=== PATIENT | male | born 1975 | race Caucasian/White ===

== ENCOUNTER 2016-11-18 23:40 | Emergency (ER) | payer SELFPAY ==
[~2016-11-18] VITALS: Ht 172.7 cm; Wt 80.0 kg
[~2016-11-18 23:40] MED LIST: NO MEDS
[2016-11-19] MEDS ORDERED: PERTUSS(ACELL),DIPH,TET VAC/PF 0.5 ML VIAL IM ONE (04:45)
[2016-11-19] MEDS ORDERED: BACITRACIN 0.9 GM PACKET OINTMENT TP ONE (04:45)
[2016-11-19 05:45] VITALS: BP 141/73
== END 2016-11-19 06:13 | disposition home or self-care (01) ==
LOC: EMS 23:41
DX: S33.5XXA Sprain of ligaments of lumbar spine, initial encounter (principal); S93.402A Sprain of unspecified ligament of left ankle, initial encounter; S80.01XA Contusion of right knee, initial encounter; S80.812A Abrasion, left lower leg, initial encounter; F12.90 Cannabis use, unspecified, uncomplicated; V19.9XXA Pedal cyclist (driver) (passenger) injured in unspecified traffic accident, initial encounter; Y93.89 Activity, other specified; Y92.89 Other specified places as the place of occurrence of the external cause; Y99.8 Other external cause status
CPT/HCPCS: 29530; 29540; 72100; 90715; 99284

== ENCOUNTER 2017-08-11 19:51 | Emergency (ER) | payer MEDICAID ==
[~2017-08-11] VITALS: Ht 172.7 cm; Wt 78.0 kg
[2017-08-11] MEDS ORDERED: PROPARACAINE/FLUORESCEIN SOD 0.5-0.25% 0.5 ML OPHTHALMIC SOLUTION OS ONE (20:45)
[2017-08-11 22:30] VITALS: BP 118/68
== END 2017-08-11 22:47 | disposition home or self-care (01) ==
LOC: EMS 20:00
DX: S01.112A Laceration without foreign body of left eyelid and periocular area, initial encounter (principal); R03.0 Elevated blood-pressure reading, without diagnosis of hypertension; F41.9 Anxiety disorder, unspecified; W22.8XXA Striking against or struck by other objects, initial encounter; Y93.89 Activity, other specified; Y92.89 Other specified places as the place of occurrence of the external cause; Y99.8 Other external cause status
CPT/HCPCS: 99282; Z7610

== ENCOUNTER 2017-08-30 09:38 | Emergency (ER) | payer MEDICAID ==
[~2017-08-30] VITALS: Ht 172.7 cm; Wt 77.3 kg
[2017-08-30] MEDS ORDERED: LIDOCAINE HCL/PF 1% 2 ML VIAL IM ONE (11:00)
[2017-08-30] MEDS ORDERED: POVIDONE-IODINE 10% 15 ML SOLUTION UD TP ONE (11:00)
[2017-08-30] MEDS ORDERED: CefTRIAXone SODIUM 1 GM/VIAL IM ONE (11:00)
[2017-08-30] MEDS ORDERED: BACITRACIN 0.9 GM PACKET OINTMENT TP ONE (11:00)
[2017-08-30] MEDS ORDERED: ACETAMINOPHEN 500 MG TABLET PO ONE (11:45)
[2017-08-30 14:21] VITALS: BP 126/75
== END 2017-08-30 15:14 | disposition home or self-care (01) ==
LOC: EMS 09:39
DX: S89.92XA Unspecified injury of left lower leg, initial encounter (principal); L02.412 Cutaneous abscess of left axilla; L03.112 Cellulitis of left axilla; F12.90 Cannabis use, unspecified, uncomplicated; X58.XXXA Exposure to other specified factors, initial encounter; Y93.89 Activity, other specified; Y92.89 Other specified places as the place of occurrence of the external cause; Y99.8 Other external cause status
CPT/HCPCS: 93971; 96372; 99284; J0696; J3490

== ENCOUNTER 2017-12-29 01:39 | Emergency (ER) | payer MEDICAID ==
[~2017-12-29] VITALS: Ht 172.7 cm; Wt 77.3 kg
[2017-12-29] MEDS ORDERED: HYDROCORTISONE 2.5% 30 GM CREAM TP ONE (03:45)
[2017-12-29 04:05] VITALS: BP 120/82
== END 2017-12-29 04:07 | disposition home or self-care (01) ==
LOC: EMS 01:41
DX: K64.4 Residual hemorrhoidal skin tags (principal); F41.9 Anxiety disorder, unspecified; F12.90 Cannabis use, unspecified, uncomplicated
CPT/HCPCS: 99283

== ENCOUNTER 2018-04-10 21:29 | Emergency (ER) | payer MEDICAID ==
[~2018-04-10] VITALS: Ht 172.7 cm; Wt 165.0 kg
[2018-04-10 23:18] VITALS: BP 132/81
== END 2018-04-10 23:32 | disposition home or self-care (01) ==
LOC: EMS 21:29
DX: L25.9 Unspecified contact dermatitis, unspecified cause (principal); F41.9 Anxiety disorder, unspecified; F12.90 Cannabis use, unspecified, uncomplicated

== ENCOUNTER 2018-06-26 16:03 | Emergency (ER) | payer MEDICAID ==
[~2018-06-26] VITALS: Ht 172.7 cm; Wt 77.3 kg
[2018-06-26 20:00] VITALS: BP 119/84
== END 2018-06-26 20:05 | disposition home or self-care (01) ==
LOC: EMS 16:04
DX: K40.20 Bilateral inguinal hernia, without obstruction or gangrene, not specified as recurrent (principal); N50.3 Cyst of epididymis; N43.3 Hydrocele, unspecified; F12.90 Cannabis use, unspecified, uncomplicated
CPT/HCPCS: 74022; 76870

== ENCOUNTER 2018-10-25 13:52 | Emergency (ER) | payer MEDICAID ==
[~2018-10-25] VITALS: Ht 172.7 cm; Wt 79.5 kg
[2018-10-25 14:02] VITALS: BP 132/82
== END 2018-10-25 16:57 | disposition home or self-care (01) ==
LOC: EMS 13:55
DX: K40.90 Unilateral inguinal hernia, without obstruction or gangrene, not specified as recurrent (principal); F41.9 Anxiety disorder, unspecified; F12.90 Cannabis use, unspecified, uncomplicated

== ENCOUNTER 2021-06-29 14:22 | Emergency (ER) | payer MEDICAID, OTHER ==
[~2021-06-29] VITALS: Ht 172.7 cm; Wt 69.6 kg
[2021-06-29 15:11] LABS: APPEARANCE,URINE CLEAR (CLEAR); BILIRUBIN,URINE NEGATIVE (NEGATIVE); GLUCOSE, URINE (UA) NEGATIVE (NEGATIVE); KETONES,URINE NEGATIVE (NEGATIVE); LEUKOCYTE ESTERASE ,URINE TRACE (NEGATIVE); NITRATE,URINE NEGATIVE (NEGATIVE); OCCULT BLOOD,URINE NEGATIVE (NEGATIVE); PH,URINE 5.5 (5.0-8.0); PROTEIN,URINE TRACE mg/dL (NEGATIVE); SPECIFIC GRAVITIY, URINE 1.033 (1.003-1.030); UROBILINOGEN,URINE <=1.0 mg/dL (<=1.0)
[2021-06-29 15:22] LABS: BACTERIA,URINE Rare /HPF (None Seen); RBC,URINE 0-2 /HPF (0-2); SQUAMOUS EPITHELIAL CELL,UR Rare /LPF (None Seen)
[2021-06-29 15:36] VITALS: BP 133/79
== END 2021-06-29 16:35 | disposition home or self-care (01) ==
LOC: EMS 14:25
DX: R82.998 Other abnormal findings in urine (principal); F12.90 Cannabis use, unspecified, uncomplicated
CPT/HCPCS: 81001; 99283

== ENCOUNTER 2023-04-21 15:59 | Emergency (ER) | payer OTHER ==
[~2023-04-21] VITALS: Ht 175.3 cm; Wt 70.5 kg
[2023-04-21 16:11] VITALS: TEMP 98.4
[2023-04-21] MEDS ORDERED: PERTUSS(ACELL),DIPH,TET VAC/PF 0.5 ML SYRINGE IM. ONE (16:30)
[2023-04-21] MEDS ORDERED: LIDOCAINE 1% 10 ML VIAL SQ ONE (16:30)
[2023-04-21] MEDS ORDERED: BACITRACIN 28 GM OINTMENT TP ONE (17:45)
[2023-04-21] MEDS ORDERED: CEPH-558 PO (17:56)
[2023-04-21 18:24] VITALS: BP 131/76; PULSE 93; RESP 16
== END 2023-04-21 18:35 | disposition home or self-care (01) ==
LOC: EMS 16:00
DX: S01.511A Laceration without foreign body of lip, initial encounter (principal); F12.90 Cannabis use, unspecified, uncomplicated; F15.90 Other stimulant use, unspecified, uncomplicated; W19.XXXA Unspecified fall, initial encounter; Y93.89 Activity, other specified; Y92.89 Other specified places as the place of occurrence of the external cause; Y99.8 Other external cause status
CPT/HCPCS: 99283; 90715; 90471; 12013; J3490

== ENCOUNTER 2023-05-15 02:17 | Emergency (ER) | payer OTHER ==
[~2023-05-15] VITALS: Ht 172.7 cm; Wt 72.7 kg
[~2023-05-15 02:17] MED LIST changes: +CEPH-558 PO; -NO MEDS
[2023-05-15 02:49] VITALS: BP 133/74; PULSE 69; RESP 15; TEMP 97.3
[2023-05-15 03:14] LABS: PH,URINE DRUG SCREEN 5.5 (5.0-8.0)
[2023-05-15 03:18] LABS: ALCOHOL, URINE DRUG SCREEN NEGATIVE (NEGATIVE); AMPHET/METH SCREEN,URINE NEGATIVE (NEGATIVE); BARBITURATE SCREEN, URINE NEGATIVE (NEGATIVE); BENZODIAZEPINES SCREEN,URINE NEGATIVE (NEGATIVE); CANNABINOID SCREEN,URINE POSITIVE (NEGATIVE); COCAINE SCREEN,URINE NEGATIVE (NEGATIVE); METHADONE SCREEN, URINE NEGATIVE (NEGATIVE); OPIATE SCREEN,URINE NEGATIVE (NEGATIVE); PHENCYCLIDINE SCREEN,URINE NEGATIVE (NEGATIVE)
== END 2023-05-15 04:11 | disposition home or self-care (01) ==
LOC: EMS 02:19
DX: S00.80XD Unspecified superficial injury of other part of head, subsequent encounter (principal); F12.90 Cannabis use, unspecified, uncomplicated; Z48.02 Encounter for removal of sutures; X58.XXXD Exposure to other specified factors, subsequent encounter
CPT/HCPCS: 80307; 99283

== ENCOUNTER 2023-10-09 23:01 | Inpatient (IN) | payer MEDICAID, OTHER ==
[~2023-10-09] VITALS: Ht 172.7 cm; Wt 70.3 kg
[2023-10-09] MEDS: HALOPERIDOL LACTATE 5 MG/ML VIAL IM ONE (23:46)
[2023-10-09] MEDS: LORazepam 2 MG/ML VIAL IM ONE (23:47)
[2023-10-09] MEDS: DiphenhydrAMINE HCL 50 MG/ML VIAL IM ONE (23:47)
[2023-10-10 04:02] LABS: ALCOHOL, URINE DRUG SCREEN NEGATIVE (NEGATIVE); AMPHET/METH SCREEN,URINE POSITIVE (NEGATIVE); BARBITURATE SCREEN, URINE NEGATIVE (NEGATIVE); BENZODIAZEPINES SCREEN,URINE NEGATIVE (NEGATIVE); CANNABINOID SCREEN,URINE POSITIVE (NEGATIVE); COCAINE SCREEN,URINE NEGATIVE (NEGATIVE); METHADONE SCREEN, URINE NEGATIVE (NEGATIVE); OPIATE SCREEN,URINE NEGATIVE (NEGATIVE); PHENCYCLIDINE SCREEN,URINE NEGATIVE (NEGATIVE)
[2023-10-10] MEDS ORDERED: HALOPERIDOL 5 MG TABLET PO PRN (08:00)
[2023-10-10 08:45] LABS: COVID AG,FIA SOURCE NASAL SWAB
[2023-10-10 09:06] LABS: SARS-COV2 (COVID) ANTIGEN,FIA Negative (Negative)
[2023-10-10 09:11] LABS: BASOPHILS % (AUTO) 0.7 % (0.0-2.0); EOSINOPHILS % (AUTO) 1.7 % (1.0-6.0); HEMATOCRIT 40.6 % (41-53); HEMOGLOBIN 13.5 g/dL (13.5-17.5); LYMPHOCYTES # (AUTO) 1.7 K/uL (1.0-4.8); LYMPHOCYTES % (AUTO) 24.4 % (22.0-44.0); MEAN CORPUSCULAR HEMOGLOBIN 29.2 pg (26.0-34.0); MEAN CORPUSCULAR HGB CONC 33.2 G/dL (31.0-37.0); MEAN CORPUSCULAR VOLUME 88 fL (80-100); MONOCYTES # (AUTO) 0.5 K/uL (0.1-1.0); MONOCYTES % (AUTO) 7.5 % (2.0-9.0); NEUTROPHILS # (AUTO) 4.5 K/uL (1.8-7.7); NEUTROPHILS % (AUTO) 65.7 % (40.0-70.0); PLATELET COUNT (AUTO) 283 K/uL (150-450); RED BLOOD CELL COUNT(AUTO) 4.62 MIL/uL (4.50-5.90); RED CELL DISTRIBUTION WIDTH 12.6 % (11.5-14.5); WHITE BLOOD COUNT (AUTO) 6.8 K/uL (4.5-11.0)
[2023-10-10 09:13] LABS: ANION GAP 4 mmol/L (8-16); CALCIUM, TOTAL 8.9 mg/dL (8.8-10.5); CARBON DIOXIDE 30 mmol/L (22-29); CHLORIDE 101 mmol/L (98-107); CREATININE 0.84 mg/dL (0.60-1.30); GLOMERULAR FILTR. RATE CALC > 60 mL/min (>60); GLUCOSE,RANDOM 95 mg/dL (70-110); SODIUM SERUM 135 mmol/L (136-145); UREA NITROGEN, BLOOD 14 mg/dL (7-18)
[2023-10-10 09:18] LABS: ALCOHOL, BLOOD (SERUM) < 3 mg/dL (0-10)
[2023-10-10] MEDS: LORazepam 2 MG TABLET PO ONE (09:40)
[2023-10-10] MEDS: HALOPERIDOL 5 MG TABLET PO ONE (09:40)
[2023-10-10] MEDS: DiphenhydrAMINE HCL 25 MG CAPSULE PO ONE (09:40)
[2023-10-10 13:07] VITALS: BP 126/93; PULSE 76; RESP 17; TEMP 98.6; O2SAT 98
[2023-10-10 20:42] VITALS: BP 132/87; PULSE 78; RESP 16; TEMP 98.7; O2SAT 98
[2023-10-11] MEDS ORDERED: NICOTINE 14 MG/24 HOUR PATCH TD PRN (07:45)
[2023-10-11] MEDS ORDERED: MAGNESIUM HYDROXIDE SUSPENSION 30 ML UDCUP PO PRN (07:45)
[2023-10-11] MEDS ORDERED: MAG HYDROX/ALUMINUM HYD/SIMETH ES 30 ML SUSPENSION UDCUP PO PRN (07:45)
[2023-10-11] MEDS ORDERED: ONDANSETRON HCL 4 MG TABLET PO PRN (07:45)
[2023-10-11] MEDS ORDERED: ACETAMINOPHEN 325 MG TABLET PO PRN (07:45)
[2023-10-11] MEDS ORDERED: GuaiFENesin/D-METHORPHAN [SUGAR-FREE] 200-20MG/10 ML SYRUP UDCUP PO PRN (07:45)
[2023-10-11] MEDS ORDERED: PETROLATUM,WHITE 28 GM JELLY TP PRN (07:45)
[2023-10-11] MEDS ORDERED: DOCUSATE SODIUM 100 MG CAPSULE PO PRN (07:45)
[2023-10-11] MEDS ORDERED: IBUPROFEN 400 MG TABLET PO PRN (07:45)
[2023-10-11] MEDS ORDERED: ALBUTEROL SULFATE HFA 90 MCG/PUFF 8 GM INHALER IH PRN (07:45)
[2023-10-11] MEDS ORDERED: LOPERAMIDE HCL 2 MG CAPSULE PO PRN (07:45)
[2023-10-11] MEDS ORDERED: CloNIDine HCL 0.1 MG TABLET PO PRN (07:45)
[2023-10-11 08:19] VITALS: BP 104/76; PULSE 75; RESP 18; TEMP 98.2; O2SAT 99
[2023-10-11] MEDS: RisperiDONE 0.5 MG TABLET PO SCH (14:00)
[2023-10-11 20:30] VITALS: BP 120/75; PULSE 69; RESP 17; TEMP 97.8; O2SAT 100
[2023-10-12] MEDS: LORazepam 2 MG TABLET PO PRN (08:25)
[2023-10-12 08:38] VITALS: BP 120/74; PULSE 69; RESP 18; TEMP 97.8; O2SAT 99
[2023-10-12 20:19] VITALS: BP 117/77; PULSE 85; RESP 17; RESP 18; TEMP 98.4; TEMP 98.6; O2SAT 98
[2023-10-12] MEDS: ZOLPIDEM TARTRATE 10 MG TABLET PO PRN (21:01)
[2023-10-13 08:46] VITALS: BP 124/76; PULSE 98; RESP 16; TEMP 98; O2SAT 100
[2023-10-13] MEDS ORDERED: RISP0.5T80 PO (10:22)
[2023-10-13] MEDS ORDERED: RISP0.5T39 PO (11:45)
== END 2023-10-13 15:55 | disposition home or self-care (01) | DRG 751 ==
LOC: EMS 23:02 → B3A 10-10 09:05
PROVIDERS: ADMIT Psychiatry & Neurology Child & Adolescent Psychiatry; ATTEND Psychiatry & Neurology Child & Adolescent Psychiatry
PROC: GZ52ZZZ Individual Psychotherapy, Cognitive (ICD-10-PCS; principal; 2023-10-11)
DX: F33.3 Major depressive disorder, recurrent, severe with psychotic symptoms (principal); E87.1 Hypo-osmolality and hyponatremia; F15.10 Other stimulant abuse, uncomplicated; G47.00 Insomnia, unspecified; F41.9 Anxiety disorder, unspecified; F12.10 Cannabis abuse, uncomplicated; Z20.822 Contact with and (suspected) exposure to COVID-19
CPT/HCPCS: 80048; 80307; 85025; 99285; G0480; J1200; J1630; J2060

== ENCOUNTER 2023-11-11 19:37 | Emergency (ER) | payer MEDICAID, OTHER ==
[~2023-11-11] VITALS: Ht 172.7 cm; Wt 72.7 kg
[~2023-11-11 19:37] MED LIST changes: -CEPH-558 PO; +RISP0.5T39 PO; +RISP0.5T80 PO
[2023-11-11 19:54] VITALS: TEMP 98.3
[2023-11-11 20:41] VITALS: BP 138/73; PULSE 116; RESP 16
== END 2023-11-11 23:49 | disposition home or self-care (01) ==
LOC: EMS 19:37
DX: S90.32XA Contusion of left foot, initial encounter (principal); M25.511 Pain in right shoulder; M25.562 Pain in left knee; F12.90 Cannabis use, unspecified, uncomplicated; V23.49XA Other motorcycle driver injured in collision with car, pick-up truck or van in traffic accident, initial encounter; Y93.55 Activity, bike riding; Y92.488 Other paved roadways as the place of occurrence of the external cause; Y99.8 Other external cause status
CPT/HCPCS: 29105; 99284

== ENCOUNTER 2023-11-26 20:31 | Emergency (ER) | payer OTHER ==
[~2023-11-26] VITALS: Ht 172.7 cm; Wt 72.7 kg
[2023-11-26 20:40] VITALS: TEMP 97.7
[2023-11-27 00:20] VITALS: BP 135/87; PULSE 88; RESP 18
[2023-11-27] MEDS: IBUPROFEN 600 MG TABLET PO ONE (00:26)
[2023-11-27] MEDS: METHOCARBAMOL 500 MG TABLET PO ONE (00:27)
[2023-11-27] MEDS ORDERED: METH-812 PO (00:34)
== END 2023-11-27 00:53 | disposition home or self-care (01) ==
LOC: EMS 20:31
DX: M79.672 Pain in left foot (principal); F41.9 Anxiety disorder, unspecified; M62.838 Other muscle spasm; F12.90 Cannabis use, unspecified, uncomplicated
CPT/HCPCS: 99283

== ENCOUNTER 2024-05-03 05:14 | Emergency (ER) | payer OTHER ==
[~2024-05-03] VITALS: Ht 172.7 cm; Wt 69.1 kg
[~2024-05-03 05:14] MED LIST changes: +METH-812 PO; -RISP0.5T39 PO; -RISP0.5T80 PO
[2024-05-03 05:24] VITALS: BP 140/76; PULSE 87; RESP 16; TEMP 98.4; O2SAT 100
== END 2024-05-03 06:11 | disposition left against medical advice (07) ==
LOC: EMS 05:16
DX: M54.50 Low back pain, unspecified (principal); Z53.21 Procedure and treatment not carried out due to patient leaving prior to being seen by health care provider

== ENCOUNTER 2024-10-16 22:47 | Emergency (ER) | payer OTHER ==
[~2024-10-16 22:47] MED LIST changes: +ACET-3385 PO; -METH-812 PO
== END 2024-10-16 23:25 | disposition left against medical advice (07) ==
LOC: EMS 23:10
DX: R51.9 Headache, unspecified (principal); Z53.21 Procedure and treatment not carried out due to patient leaving prior to being seen by health care provider

== ENCOUNTER 2024-12-24 15:47 | Emergency (ER) | payer OTHER ==
[~2024-12-24] VITALS: Ht 170.2 cm; Wt 81.8 kg
[2024-12-24 15:55] VITALS: BP 121/76; PULSE 92; RESP 16; TEMP 98; O2SAT 98
== END 2024-12-24 16:52 | disposition home or self-care (01) ==
LOC: EMS 15:47
DX: R00.2 Palpitations (principal); F12.90 Cannabis use, unspecified, uncomplicated; F41.9 Anxiety disorder, unspecified; F15.90 Other stimulant use, unspecified, uncomplicated; Z98.890 Other specified postprocedural states
CPT/HCPCS: 93005; 99283

== ENCOUNTER 2025-03-21 06:27 | Emergency (ER) | payer OTHER ==
[~2025-03-21] VITALS: Ht 170.2 cm; Wt 81.8 kg
[2025-03-21 06:28] VITALS: TEMP 98.1
[2025-03-21 07:18] LABS: COVID AG,FIA SOURCE NASAL SWAB
[2025-03-21 08:01] LABS: SARS-COV2 (COVID) ANTIGEN,FIA Negative (Negative)
[2025-03-21 08:34] VITALS: BP 131/78; PULSE 82; RESP 18; O2SAT 99
[2025-03-21 08:38] LABS: AMPHET/METH SCREEN,URINE POSITIVE (NEGATIVE); BARBITURATE SCREEN, URINE NEGATIVE (NEGATIVE); CANNABINOID SCREEN,URINE POSITIVE (NEGATIVE); COCAINE SCREEN,URINE NEGATIVE (NEGATIVE); METHADONE SCREEN, URINE NEGATIVE (NEGATIVE)
[2025-03-21 08:39] LABS: PLATELET COUNT (AUTO) 298 K/uL (150-450); RED BLOOD CELL COUNT(AUTO) 4.92 MIL/uL (4.50-5.90); RED CELL DISTRIBUTION WIDTH 13.5 % (11.5-14.5); WHITE BLOOD COUNT (AUTO) 6.2 K/uL (4.5-11.0)
[2025-03-21 08:44] LABS: PH,URINE DRUG SCREEN 5.5 (5.0-8.0)
[2025-03-21 08:49] LABS: ALCOHOL, URINE DRUG SCREEN NEGATIVE (NEGATIVE)
[2025-03-21 08:55] LABS: CALCIUM, TOTAL 8.9 mg/dL (8.8-10.5); CREATININE 1.22 mg/dL (0.60-1.30); GLOMERULAR FILTR. RATE CALC > 60 mL/min (>60); GLUCOSE,RANDOM 78 mg/dL (70-110); SODIUM SERUM 143 mmol/L (136-145); UREA NITROGEN, BLOOD 24 mg/dL (7-18)
[2025-03-21] MEDS ORDERED: HYDR50CA7 PO (09:51)
== END 2025-03-21 10:00 | disposition home or self-care (01) ==
LOC: EMS 06:28
DX: F15.10 Other stimulant abuse, uncomplicated (principal); F41.9 Anxiety disorder, unspecified; F20.9 Schizophrenia, unspecified; F31.9 Bipolar disorder, unspecified; F12.90 Cannabis use, unspecified, uncomplicated; Z59.00 Homelessness unspecified; Z20.822 Contact with and (suspected) exposure to COVID-19
CPT/HCPCS: 99283; 87426; 80048; 85025; 36415; 80307; G0480

== ENCOUNTER 2025-04-05 12:45 | Emergency (ER) | payer OTHER ==
[~2025-04-05] VITALS: Ht 172.7 cm; Wt 73.6 kg
[~2025-04-05 12:45] MED LIST changes: -ACET-3385 PO; +ARIP10TA38 PO; +ATOM80CA3 PO; +BUPR-722 PO; +HYDR50CA7 PO
[2025-04-05 13:02] VITALS: TEMP 98
[2025-04-05 13:12] VITALS: BP 121/79; PULSE 77; RESP 16; O2SAT 99
[2025-04-05 13:15] LABS: COVID AG,FIA SOURCE NASAL SWAB
[2025-04-05 13:40] LABS: SARS-COV2 (COVID) ANTIGEN,FIA Negative (Negative)
== END 2025-04-05 15:03 | disposition home or self-care (01) ==
LOC: EMS 12:45
DX: F41.9 Anxiety disorder, unspecified (principal); F20.9 Schizophrenia, unspecified; F31.9 Bipolar disorder, unspecified; F12.90 Cannabis use, unspecified, uncomplicated; F15.90 Other stimulant use, unspecified, uncomplicated; Z79.899 Other long term (current) drug therapy; Z20.822 Contact with and (suspected) exposure to COVID-19
CPT/HCPCS: 99283

== ENCOUNTER 2025-04-11 23:52 | Emergency (ER) | payer OTHER ==
[~2025-04-11] VITALS: Ht 170.2 cm; Wt 75.0 kg
[2025-04-11 23:59] VITALS: BP 122/89; PULSE 98; RESP 16; TEMP 98.1; O2SAT 99
== END 2025-04-12 01:38 | disposition left against medical advice (07) ==
LOC: EMS 23:54
DX: F41.9 Anxiety disorder, unspecified (principal); Z53.21 Procedure and treatment not carried out due to patient leaving prior to being seen by health care provider
CPT/HCPCS: 99281; Z7502